=== PATIENT | female | born 1960 | race African-American/Black ===

== ENCOUNTER 2022-05-19 15:04 | Emergency (ER) | payer OTHER, SELFPAY ==
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
[2022-05-19 15:15] VITALS: BP 149/92; PULSE 85; O2SAT 100
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
[2022-05-19 15:23] VITALS: BP 132/78; PULSE 77; RESP 20; TEMP 36.3; O2SAT 100; BMI 23.0
== END 2022-05-19 19:04 | disposition home or self-care (01) ==
PROVIDERS: Emergency Provider Emergency Medicine Emergency Medical Services
DX: Z04.1 Encounter for examination and observation following transport accident (principal); R07.9 Chest pain, unspecified
CPT/HCPCS: 71046; 99282; 99283